=== PATIENT | female | born 1940 | race Asian ===

== ENCOUNTER 2019-06-13 08:11 | Day surgery (SDC) | payer OTHER, MEDICARE ==
[2019-06-11 15:59] VITALS: BMI 25.1
[2019-06-13 10:09] VITALS: PULSE 71; TEMP 97.8
[2019-06-13 10:44] VITALS: BP 128/74
== END 2019-06-13 10:45 | disposition home or self-care (01) ==
LOC: FASU-ENDO 08:11
PROVIDERS: ATTEND Internal Medicine Gastroenterology
PROC: 0DJD8ZZ Inspection of Lower Intestinal Tract, Via Natural or Artificial Opening Endoscopic (ICD-10-PCS; principal; 2019-06-13 09:35)
DX: K64.8 Other hemorrhoids (principal)
CPT/HCPCS: 82962